=== PATIENT | female | born 1950 | race Caucasian/White ===

== ENCOUNTER 2016-07-31 10:16 | Outpatient (CLI) ==
[2012-09-14 10:21] VITALS: TEMP 96.6; BMI 25.4
[2016-07-31 10:30] LABS: BASOPHILS # (AUTO) 0.1 K/uL (0-0.2); BASOPHILS % (AUTO) 1.3 % (0.0-3.0); EOSINOPHILS # (AUTO) 0.1 K/ul (0.0-0.7); EOSINOPHILS % (AUTO) 2.6 % (0.0-7.0); HEMATOCRIT 34.8 % (37.0-47.0); HEMOGLOBIN 11.2 g/dl (12.0-16.0); IMMATURE GRANULOCYTE % (AUTO) 0.2 % (0.0-5.0); LYMPHOCYTES # (AUTO) 1.6 K/uL (0.60-3.4); MEAN CORPUSCULAR HEMOGLOBIN 26.2 pg (27.0-31.0); MEAN CORPUSCULAR HGB CONC 32.2 (31.8-35.4); MEAN CORPUSCULAR VOLUME 81.3 fl (81.0-99.0); MONOCYTES # (AUTO) 0.4 K/uL (0.4-2.0); MONOCYTES % (AUTO) 8.4 (0-10); NEUTROPHILS # (AUTO) 2.3 K/ul (2.0-6.9); NEUTROPHILS % (AUTO) 51.5; PLATELET COUNT 247 10^3/uL (140-440); RED BLOOD COUNT 4.28 10^6/ul (4.20-5.40); WHITE BLOOD COUNT 4.53 K/ul (4.6-10.2)
[2016-07-31 11:11] LABS: ALBUMIN 3.7 g/dL (3.4-5.0); ALBUMIN/GLOBULIN RATIO 1.09; ANION GAP 13.3; BILIRUBIN,TOTAL 0.34 mg/dL (0.00-1.20); BUN/CREATININE RATIO 12.74; CHOL/HDL RATIO 3.8 (4.5-5.5); CREATININE 1.02 mg/dL (0.60-1.30); POTASSIUM 4.3 mmol/L (3.5-5.10); TOTAL PROTEIN 7.1 g/dL (5.8-8.1)
== END 2016-07-31 10:17 | disposition home or self-care (01) ==
LOC: LAB 10:16
PROVIDERS: ATTEND Emergency Medicine
DX: E78.5 Hyperlipidemia, unspecified (principal); I10 Essential (primary) hypertension
CPT/HCPCS: 36415; 80053; 80061; 84443; 85025

== ENCOUNTER 2016-08-03 10:41 | Outpatient (CLI) ==
[2012-09-14 10:21] VITALS: TEMP 96.6; BMI 25.4
--- NOTE | 2016-08-03 11:17 | DI ---
EXAM: 3 views of the right HISTORY: right foot pain. COMPARISON: None FINDINGS: There is no cortical irregularity or displaced fracture. There is mild degenerative whitakre e and hallux valgus deformity at the first MTP joint. There is no lytic or blastic lesion. The arc h is maintained. Soft tissues are unremarkable. 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
== END 2016-08-03 10:42 | disposition home or self-care (01) ==
LOC: RAD 10:41
PROVIDERS: ATTEND Emergency Medicine
DX: M79.671 Pain in right foot (principal)

== ENCOUNTER 2016-09-05 10:21 | Outpatient (CLI) ==
[2012-09-14 10:21] VITALS: TEMP 96.6; BMI 25.4
[2016-09-05 10:50] LABS: BASOPHILS # (AUTO) 0.1 K/uL (0-0.2); BASOPHILS % (AUTO) 1.4 % (0.0-3.0); EOSINOPHILS # (AUTO) 0.1 K/ul (0.0-0.7); EOSINOPHILS % (AUTO) 2.2 % (0.0-7.0); HEMATOCRIT 34.8 % (37.0-47.0); HEMOGLOBIN 11.4 g/dl (12.0-16.0); IMMATURE GRANULOCYTE % (AUTO) 0.2 % (0.0-5.0); LYMPHOCYTES # (AUTO) 1.5 K/uL (0.60-3.4); LYMPHOCYTES % (AUTO) 31.2 (10.0-50.0); MEAN CORPUSCULAR HEMOGLOBIN 25.9 pg (27.0-31.0); MEAN CORPUSCULAR HGB CONC 32.8 (31.8-35.4); MEAN CORPUSCULAR VOLUME 79.1 fl (81.0-99.0); MONOCYTES # (AUTO) 0.5 K/uL (0.4-2.0); MONOCYTES % (AUTO) 9.1 (0-10); NEUTROPHILS # (AUTO) 2.8 K/ul (2.0-6.9); NEUTROPHILS % (AUTO) 55.9; PLATELET COUNT 249 10^3/uL (140-440); WHITE BLOOD COUNT 4.94 K/ul (4.6-10.2)
[2016-09-06 14:29] LABS: IMMATURE RETIC FRACTION 12.2; RETICULOCYTE % 0.91 %
[2016-09-06 14:44] LABS: FERRITIN 10.3 ng/mL (4.63-204.00)
[2016-09-06 16:03] LABS: FOLATE 30.4 ng/mL (3.1-20.5)
== END 2016-09-05 10:22 | disposition home or self-care (01) ==
LOC: LAB 10:21
PROVIDERS: ATTEND Emergency Medicine
DX: D64.9 Anemia, unspecified (principal)
CPT/HCPCS: 36415; 82607; 82728; 82746; 83540; 83550; 84466; 85025; 85045

== ENCOUNTER 2016-09-11 06:39 | Outpatient (CLI) ==
[2012-09-14 10:21] VITALS: TEMP 96.6; BMI 25.4
--- NOTE | 2016-09-12 11:19 | ECHO2D ---
Date of Exam: 09/11/16 Ordering Physician: MONIE RICO Reason for Echo: CHEST PAIN M-Mode Normal Adult Results LV Dimensions Normal Adult Results AoV Opening excursions >1.6 >1.6 LVEDD-base- 3.5-5.8 4.1 Ao root dimensions 2.0-3.7 2.7 LVESD-base- 3.1-4.6 L. Atrium dimensions 1.9-3.8 3.0 Post. Wall thickness 0.8-1.1 0.9 IV septum (thickness) 0.7-1.2 0.9 Post. Wall excursion 0.72-1.3 NORMAL Septal motion NORMAL Systolic motion R. Ventricular cavity 1.5-2.0 NORMAL LVEF 60% 58% Paradoxical septal wall motion NORMAL 2-D : MITRAL VALVE PROLAPSE NOTED ON LEFT PARASTERNAL LONG AXIS / APICAL FOUR CHAMBER VIEW, NORMAL LEFT VENTRICULAR CONTRACTILITY--NO EFFUSION, NO THROMBUS, ANA M LEFT VENTRICLE AND LEFT ATRIAL SIZE. M-MODE: MV: MITRAL VALVE PROLAPSE LATE SYSTOLIC AV: NORMAL TV: NORMAL PV: CHAMBER SIZE: NORMAL WALL MOTION: NORMAL PERICARDIUM: NORMAL INTERPRETATION: 1. LATE MITRAL VALVE PROLAPSE 2. NORMAL LEFT VENTRICULAR CONTRACTILITY 3. NORMAL LEFT VENTRICLE AND LEFT ATRIAL SIZE MTDD
== END 2016-09-11 06:40 | disposition home or self-care (01) ==
LOC: CAR 06:39
PROVIDERS: ATTEND Emergency Medicine
DX: R07.9 Chest pain, unspecified (principal)

== ENCOUNTER 2016-09-14 06:39 | Outpatient (CLI) | payer OTHER ==
[2012-09-14 10:21] VITALS: TEMP 96.6; BMI 25.4
--- NOTE | 2016-09-14 09:19 | STRESSECHO ---
Date of Test: 09/14/16 Reason for Exam: CHEST PAIN, SOB Ordering Physician: MONIE RICO Current Medications: SYNTHROID, ACYCLOVIR, CITALOPRAM Physical Findings: S1, S2, NO S3 Resting EKG: SINUS RHYTHM/NO ACUTE CHANGES Target Heart Rate: 130/154 STAGE MPH/GRADE HEART RATE BPM BLOOD PRESSURE mmhg RHYTHM S-T SEGMENT +/- UP DOWN SYMPTOMS,COMMENTS At Rest 75 110/70 SR X NONE 1 1.7/10% 142 178/74 SR X NONE 2 2.5/12% 3 3.4/14% 4 4.2/16% 5 5.0/18% Immediately after 154 178/80 SR X SHORT OF BREATH Durations of Exercise: 4:12 Maximum Heart Rate Reached: 154 Reason for Termination: SHORT OF BREATH 3 MIN POST EXERCISE: HR 92 BPM, BP 142/80 MMHG, SR, +/- 4 MIN POST EXERCISE: HR 90 BPM, SR, +/- INTERPRETATION: 100% OXYGEN SATURATION WITH EXERCISE ON ROOM AIR 1. TEST POSITIVE FOR ISCHEMIC ST-T WAVE CHANGES 2. NO CHEST PAIN OR DISCOMFORT 3. BLOOD PRESSURE RESPONSE: NORMAL AT REST/ MILD HYPERTENSION WITH EXERCISE 4. NO ARRHYTHMIAS MILDLY HYPOKINETIC INFERIOR WALL WITH EXERCISE/NORMAL LEFT VENTRICULAR CONTRACTILITY AT REST BABY ASA AND ZEBETA 5MG MTDD
--- NOTE | 2016-09-14 09:21 | ECHOSTRESS ---
Date of Exam: 09/14/16 Ordering Physician: MONIE RICO Reason for Echo: CHEST PAIN, SOB, STRESS TEST--POSITIVE FOR ISCHEMIA M-Mode Normal Adult Results LV Dimensions Normal Adult Results AoV Opening excursions >1.6 LVEDD-base- 3.5-5.8 Ao root dimensions 2.0-3.7 LVESD-base- 3.1-4.6 L. Atrium dimensions 1.9-3.8 Post. Wall thickness 0.8-1.1 IV septum (thickness) 0.7-1.2 Post. Wall excursion 0.72-1.3 Septal motion Systolic motion R. Ventricular cavity 1.5-2.0 LVEF 60% Paradoxical septal wall motion 2-D: MILD INFERIOR WALL HYPOKINESIA WITH EXERCISE/ANA M LEFT VENTRICLE AT REST M-MODE: MV: AV: TV: PV: CHAMBER SIZE: WALL MOTION: MILD INFERIOR WALL HYPOKINESIA WITH EXERCISE/ANA M LEFT VENTRICLE AT REST PERICARDIUM: INTERPRETATION: 1. MILD INFERIOR WALL HYPOKINESIA WITH EXERCISE/ANA M LEFT VENTRICLE AT REST MTDD
== END 2016-09-14 06:40 | disposition home or self-care (01) ==
LOC: CAR 06:39
PROVIDERS: ATTEND Emergency Medicine
DX: R07.9 Chest pain, unspecified (principal)

== ENCOUNTER 2016-10-05 10:42 | Outpatient (CLI) ==
[2012-09-14 10:21] VITALS: TEMP 96.6; BMI 25.4
--- NOTE | 2016-10-05 11:23 | DI ---
EXAM: Chest two views HISTORY: Shortness of breath COMPARISON: 05/15/2010 TECHNIQUE: Two views of the chest were performed FINDINGS: The lungs are clear. There is no pleural effusion or pneumothorax. The heart is normal in size. The mediastinal contour is normal. There are no acute abnormalities of the bones. Breast implants noted. IMPRESSION: No acute cardiopulmonary process.
== END 2016-10-05 10:43 | disposition home or self-care (01) ==
LOC: RAD 10:42
PROVIDERS: ATTEND Emergency Medicine
DX: R06.02 Shortness of breath (principal)

== ENCOUNTER 2016-10-09 12:54 | Outpatient (CLI) ==
[2012-09-14 10:21] VITALS: TEMP 96.6; BMI 25.4
== END 2016-10-09 12:55 | disposition home or self-care (01) ==
LOC: CAR 12:54
PROVIDERS: ATTEND Emergency Medicine
DX: R06.02 Shortness of breath (principal)

== ENCOUNTER 2016-10-16 08:45 | Outpatient (CLI) ==
[2012-09-14 10:21] VITALS: TEMP 96.6; BMI 25.4
--- NOTE | 2016-10-16 10:04 | CT ---
EXAM: CT of the chest without contrast History: Mitral valve prolapse. Comparison: Chest radiograph 10/05/2016 Technique: Multiplanar CT images through the thorax were obtained without the administration of IV contrast Findings: Bilateral breast implants. 9 mm left axillary lymph node and 8 mm right axillary lymph n ode. No pathologically enlarged mediastinal lymph nodes. Evaluation for hilar lymph nodes is limite d due to the lack of contrast administration but no bulky adenopathy is seen. Coronary calcificatio ns. Heart size is normal. Great vessels are unremarkable. No consolidation. No pleural fluid and no pneumothorax. No lung masses or lung nodules. Within the visualized upper abdomen, no acute findings. No acute osseous abnormalities. Impression: 1. No acute intrathoracic process. 2. Borderline enlarged nonspecific bilateral axillary lymph nodes.
== END 2016-10-16 08:46 | disposition home or self-care (01) ==
LOC: RAD 08:45
PROVIDERS: ATTEND Emergency Medicine
DX: I34.1 Nonrheumatic mitral (valve) prolapse (principal); R06.02 Shortness of breath

== ENCOUNTER 2017-05-23 12:39 | Outpatient (CLI) | payer OTHER ==
[2012-09-14 10:21] VITALS: TEMP 96.6; BMI 25.4
== END 2017-05-23 12:40 | disposition home or self-care (01) ==
LOC: LAB 12:39
PROVIDERS: ATTEND Nurse Practitioner Family
DX: R05 Cough (principal)
CPT/HCPCS: 87651; 87804

== ENCOUNTER 2017-05-28 11:56 | Outpatient (CLI) ==
[2012-09-14 10:21] VITALS: TEMP 96.6; BMI 25.4
--- NOTE | 2017-05-28 14:01 | DI ---
EXAM: CHEST FRONTAL AND LATERAL VIEWS HISTORY: Shortness of breath. COMPARISON: 10/05/2016 FINDINGS: Heart size and mediastinal contour remain within normal limits. Mild hyperinflation. No acute infiltrates are seen. No vascular congestion. There is no consolidation, visible pleural flui d or pneumothorax. Bones reveal no acute fracture. IMPRESSION: No acute cardiopulmonary process.
== END 2017-05-28 11:57 | disposition home or self-care (01) ==
LOC: RAD 11:56
PROVIDERS: ATTEND Emergency Medicine
DX: R06.02 Shortness of breath (principal)

== ENCOUNTER 2017-08-10 08:29 | Outpatient (CLI) | payer OTHER ==
[2012-09-14 10:21] VITALS: TEMP 96.6; BMI 25.4
== END 2017-08-10 08:30 | disposition home or self-care (01) ==
LOC: LAB 08:29
PROVIDERS: ATTEND Emergency Medicine
DX: I10 Essential (primary) hypertension (principal); D64.9 Anemia, unspecified; F33.1 Major depressive disorder, recurrent, moderate
CPT/HCPCS: 36415; 80053; 80061; 82607; 82728; 82746; 83540; 83550; 84443; 84466; 85025; 85045

== ENCOUNTER 2017-11-16 12:49 | Outpatient (CLI) ==
[2012-09-14 10:21] VITALS: TEMP 96.6; BMI 25.4
== END 2017-11-16 12:50 | disposition home or self-care (01) ==
LOC: LAB 12:49
PROVIDERS: ATTEND Emergency Medicine
DX: E03.9 Hypothyroidism, unspecified (principal); I10 Essential (primary) hypertension
CPT/HCPCS: 36415; 80053; 80061; 84443; 85025

== ENCOUNTER 2018-05-06 11:56 | Outpatient (CLI) ==
[2012-09-14 10:21] VITALS: TEMP 96.6; BMI 25.4
== END 2018-05-06 11:57 | disposition home or self-care (01) ==
LOC: RHC-LAB 11:56 → FCC-LAB 11:57
PROVIDERS: ATTEND Family Medicine
DX: R07.9 Chest pain, unspecified (principal); R10.13 Epigastric pain; E03.9 Hypothyroidism, unspecified; I10 Essential (primary) hypertension; I34.1 Nonrheumatic mitral (valve) prolapse; R06.02 Shortness of breath; K27.9 Peptic ulcer, site unspecified, unspecified as acute or chronic, without hemorrhage or perforation
CPT/HCPCS: 36415; 80053; 80061; 84443; 85025; 87338

== ENCOUNTER 2018-05-23 06:24 | Outpatient (CLI) ==
[2012-09-14 10:21] VITALS: TEMP 96.6; BMI 25.4
--- NOTE | 2018-05-27 08:47 | STRESSECHO ---
Date of Test: 05/23/18 Ordering Physician: DR. 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, EPIGASTRIC PAIN Smoking History: NONE Height: 61 " Weight: 140 LBS Current Medications: SYNTHROID, ZYRTEC, ACYCLOVIR, CELEXA, PROTONIX, CARAFATE Resting EKG: SINUS RHYTHM/ NO ACUTE CHANGES Target Heart Rate: 130/153 S-T SEGMENT STAGE MPH/GRADE HEART RATE BPM BLOOD PRESSURE MMHG RHYTHM +/- ELEVATION DEPRESSION SYMPTOMS AT REST 65 BPM 118/78 MMHG SR X NONE 1 1.7/10% 140 BPM 130/80 MMHG SR X NONE 2 2.5/12% 3 3.4/14% 4 4.2/16% 5 5.0/18% Immediately After 155 BPM SR X NONE Minutes Post Exercise 4:00 85 BPM 124/70 MMHG SR X NONE Minutes Post Exercise DURATION OF EXERCISE: 4:00 MAXIMUM HEART RATE REACHED: 155 BPM REASON FOR TERMINATION: SHORT OF AIR 98% OXYGEN SATURATION ON ROOM AIR METS: 7.0 INTERPRETATION: 1. NO EVIDENCE OF ISCHEMIA BY ST-T WAVE 2. NO CHEST PAIN OR CHEST DISCOMFORT 3. BLOOD PRESSURE RESPONSE: NORMAL AT REST AND WITH EXERCISE 4. NO ARRHYTHMIAS NORMAL LEFT VENTRICULAR CONTRACTILITY--RESTING AND POST EXERCISE MTDD
--- NOTE | 2018-05-27 08:52 | ECHOSTRESS ---
Date of Exam: 05/23/18 Ordering Physician: DR. JATINDER SHEPARD Reason for Echo: CHEST PAIN, EPIGASTRIC PAIN, STRESS TEST--NO ISCHEMIA M-Mode Normal Adult Results LV Dimensions Normal Adult Results AoV Opening excursions >1.6 LVEDD-base- 3.5-5.8 Ao root dimensions 2.0-3.7 LVESD-base- 3.1-4.6 L. Atrium dimensions 1.9-3.8 Post. Wall thickness 0.8-1.1 IV septum (thickness) 0.7-1.2 Post. Wall excursion 0.72-1.3 Septal motion Systolic motion R. Ventricular cavity 1.5-2.0 LVEF 60% Paradoxical septal wall motion 2-D: NORMAL LEFT VENTRICULAR CONTRACTILITY--RESTING AND POST EXERCISE M-MODE: MV: AV: TV: PV: CHAMBER SIZE: WALL MOTION: NORMAL LEFT VENTRICULAR CONTRACTILITY--RESTING AND POST EXERCISE PERICARDIUM: INTERPRETATION: 1. NORMAL LEFT VENTRICULAR CONTRACTILITY--RESTING AND POST EXERCISE MTDD
--- NOTE | 2018-05-27 08:54 | ECHO2D ---
Date of Exam: 05/23/18 Ordering Physician: DR. JATINDER SHEPARD Room #: OP Reason for Echo: CHEST PAIN, EPIGASTRIC PAIN M-Mode Normal Adult Results LV Dimensions Normal Adult Results AoV Opening excursions >1.6 >1.6 LVEDD-base- 3.5-5.8 3.2 Ao root dimensions 2.0-3.7 2.9 LVESD-base- 3.1-4.6 L. Atrium dimensions 1.9-3.8 3.6 Post. Wall thickness 0.8-1.1 1.0 IV septum (thickness) 0.7-1.2 0.9 Post. Wall excursion 0.72-1.3 NORMAL Septal motion NORMAL Systolic motion R. Ventricular cavity 1.5-2.0 NORMAL LVEF 60% 60% Paradoxical septal wall motion NORMAL 2-D : 2-D M Mode Echocardiogram was performed using apical four chamber and left parasternal long and short axis views. Mitral, tricuspid and aortic valves appear to be normal. Contractility of the left ventricle seems to be normal, so is the cavity size. Left atrial cavity size and aortic root appear to be normal. There is no pericardial effusion. There is no thrombus noted in the left ventricular or left aortic cavity. No mitral valve prolapse noted. M-MODE: MV: NORMAL AV: NORMAL TV: NORMAL PV: CHAMBER SIZE: NORMAL WALL MOTION: NORMAL PERICARDIUM: NORMAL INTERPRETATION: 1. NORMAL 2 "D" "M" MODE ECHO MTDD
== END 2018-05-23 06:25 | disposition home or self-care (01) ==
LOC: CAR 06:24
PROVIDERS: ATTEND Family Medicine
DX: R07.9 Chest pain, unspecified (principal); R10.13 Epigastric pain

== ENCOUNTER 2018-06-28 11:56 | Emergency (ER) ==
[2018-06-28 12:03] VITALS: BP 132/75; TEMP 99.1; BMI 25.1
--- NOTE | 2018-06-28 13:00 | ED.PDOC ---
General ED Provider: Dr. CLYDE MARTIN Chief Complaint: Constipation Stated Complaint: stomach ca had foirst chemo dose last week.Independently copncerned about bowel slowness and retention.Gives herself enema but would like to know if she has her bowels filled. Time Seen by Physician: 12:00 Mode of Arrival: Walk-In Information Source: Patient Exam Limitations: No limitations Primary Care Provider: JATINDER SHEPARD Nursing and Triage Documentation Reviewed and Agree: Yes Does patient meet sepsis criteria?: No System Inflammatory Response Syndrome: Not Applicable Sepsis Protocol: For patient's 13 years and over: Temp is 96.8 and below OR 101 and greater Pulse >90 BPM Resp >20/minute Acutely Altered Mental Status Are patient's symptoms suggestive of a new infection, such as: -Pneumonia -Skin, Soft Tissue -Endocarditis -UTI -Bone, Joint Infection -Implantable Device -Acute Abdominal Infection -Wound Infection -Meningitis -Blood Stream Catheter Infection -Unknown GI Complaint Exam - Abdominal Pain Complaint/Exam Duration: few days Symptoms Are: Still present Timing: Intermittent Initial Severity: Mild Current Severity: Mild Location of Pain: Diffuse Radiates To: Reports: Back Character: Reports: Cramping Aggravating: Reports: Eating Alleviating: Reports: Rest, Position, Spontaneous resolution Associated Signs and Symptoms: Reports: Decreased activity Review of Systems - Review Of Systems Constitutional: Reports: Weakness Eyes: Reports: No symptoms Ears, Nose, Mouth, Throat: Reports: No symptoms Respiratory: Reports: No symptoms Cardiac: Reports: No symptoms GI: Reports: No symptoms : Reports: No symptoms Musculoskeletal: Reports: No symptoms Neurological: Reports: No symptoms Endocrine: Reports: No symptoms Hematologic/Lymphatic: Reports: No symptoms All Other Systems: Reviewed and Negative Past Medical History - Past Medical History Previously Healthy: Yes Endocrine: Reports: None Cardiovascular: Reports: None Respiratory: Reports: None Hematological: Reports: None Gastrointestinal: Reports: Other Genitourinary: Reports: None Neuro/Psych: Reports: None Musculoskeletal: Reports: None Cancer: Reports: None Last Menstrual Period: n/a - Surgical History General Surgical History: Reports: Other - Family History Family History: Reports: Hypertension - Social History Smoking Status: Never smoker Hx Substance Use: No Alcohol Screening: None Lives: Alone - Immunizations Tetanus Shot up to Date: Yes Physical Exam - Physical Exam Appearance: Well-appearing Ill-appearing: None Pain Distress: Mild Eyes: SUBHASH ENT: Ears normal Neck: Supple Respiratory: Airway patent GI/: Nontender Musculoskeletal: Normal strength Skin: Warm Neurological: Sensation intact Critical Care Note - Critical Care Note Total Time (mins): 0 Course - Course Orders, Labs, Meds: Orders Category Date Time Status IV [ED IV/MEDIPORT/POWERPORT] .ONCE EMERGENCY 06/28/18 13:09 Active 0.9 % Sodium Chloride [Saline Flush] MEDS 06/28/18 13:09 Active 1 syr IVF PRN PRN Sodium Chloride 0.9% [Sodium Chloride] 500 ml MEDS 06/28/18 13:[address] ABDOMEN/PELVIS WO CONTRAST Stat RADS 06/28/18 13:04 Completed Medications Generic Name Dose Route Start Last Admin Trade Name Freq PRN Reason Stop Dose Admin Sodium Chloride 1 syr 06/28/18 13:09 Saline Flush IVF PRN PRN To flush IV Discontinued Medications Generic Name Dose Route Start Last Admin Trade Name Freq PRN Reason Stop Dose Admin Sodium Chloride 500 mls @ 500 mls/hr 06/28/18 13:10 06/28/18 13:27 Sodium Chloride IV 06/28/18 14:09 500 mls/hr BOLUS STA Administration Vital Signs: Temp Pulse Resp BP Pulse Ox 06/28/18 11:58 99.1 F 68 20 132/75 97 Departure - Departure Time of Disposition: 14:30 Disposition: HOME SELF-CARE Discharge Problem: Constipation Instructions: Fleet Enema (ED) Condition: Good Pt referred to PMD for follow-up: Yes IPMP verified?: Yes Allergies/Adverse Reactions: Allergies ampicillin Adverse Reaction (Verified 06/28/18 12:03) clarithromycin [From Biaxin] Adverse Reaction (Verified 06/28/18 12:03) meperidine HCl [From Demerol] Adverse Reaction (Verified 06/28/18 12:03) minocycline HCl [From Minocin] Adverse Reaction (Verified 06/28/18 12:03) Penicillins Adverse Reaction (Verified 06/28/18 12:03) Skin Cleanser Combination No.4 [From Minocin] Adverse Reaction (Verified 12:03) Home Medications: Ambulatory Orders Cetirizine HCl [Zyrtec] 10 mg PO DAILY 09/14/12 Levothyroxine Sodium [Synthroid] 88 mcg PO DAILY 09/14/12 Citalopram Hydrobromide [Celexa] 40 mg PO DAILY 06/16/13 Fluticasone Propionate [Flonase Allergy Relief] 9.9 ml NS d 10/05/16 Acyclovir 800 mg PO DAILY #30 tab-cap 05/06/18 Disposition Discussed With: Patient
[2018-06-28] MEDS ORDERED: SODIUM CHLORIDE 500 ML IV STA (13:10)
--- NOTE | 2018-06-28 14:18 | CT ---
Exam: CT abdomen pelvis without intravenous contrast. Comparison: Ultrasound performed 06/08/2014. Reason for exam: Stomach cancer. FINDINGS: Image interpretation is limited by the lack of intravenous contrast administration. Nonspecific inflammatory changes are seen in the mid mesenteric fat in the region of the pancreas and duodenum. There is thickening of the distal gastric wall. No hydronephrosis, hydroureter or nephrolithiasis in either kidney. The liver and spleen and adrenal glands appear grossly unremarkable within limitations of a noncontra sted study. No obvious pancreatic ductal dilatation is seen. No focal small bowel dilatation or transition point. Dense stool seen throughout the colon. No suspicious appearing osteoblastic or osteolytic lesions. The bladder appears unremarkable. Impression: 1. Thickening of the distal gastric wall. Imaging findings can be seen with gastritis neoplasia and non distension. Recommend direct visualization. 2. Nonspecific inflammatory changes are seen in the mid mesenteric abdomen with prominent appearing lymph nodes. Findings can be seen with mesenteritis, inflammation, infection, and neoplasia. Follow -up imaging is recommended. 3. Dense stool is seen throughout the colon consistent with constipation.
== END 2018-06-28 15:45 | disposition home or self-care (01) ==
LOC: ED 11:56
DX: K59.00 Constipation, unspecified (principal); C16.9 Malignant neoplasm of stomach, unspecified
CPT/HCPCS: 99283

== ENCOUNTER 2018-07-15 12:02 | Emergency (ER) ==
[2018-07-15 12:14] VITALS: BP 126/79; TEMP 98; BMI 24.3
[2018-07-15] MEDS ORDERED: SODIUM CHLORIDE 1,000 ML IV STA (12:57)
--- NOTE | 2018-07-15 14:53 | CT ---
EXAM: CT of the abdomen pelvis without contrast History: Abdominal pain, stage IV stomach cancer. Vomiting Comparison: CT abdomen pelvis 06/28/2018 Technique: Multiplanar CT images through the abdomen pelvis were obtained without the administration of IV contrast Findings: Limited evaluation without IV contrast. Lung bases are clear. No acute osseous abnormali ties. No change in the gastric wall thickening and mildly enlarged upper abdominal lymph nodes. The stomach is mild to moderately distended proximal to the gastric wall thickening. No gallstones iden tified by CT. No focal liver or splenic lesions identified within limitations of a noncontrast study . No wilfrido peripancreatic inflammation. Adrenal glands are unremarkable. No renal stones and no hy dronephrosis. No bowel obstruction. No free air and no ascites. No bladder wall thickening. No pe rirectal inflammation. Uterus is not seen in likely has been surgically removed. Colonic diverticul osis. Impression: 1. No change in the malignant wall thickening of the stomach with enlarged upper abdominal lymph nod es. 2. The stomach is mild to moderately distended proximal to the gastric wall thickening. 3. No evidence for bowel obstruction. 4. Colonic diverticulosis. 5. Limits evaluation without IV contrast
--- NOTE | 2018-07-15 15:39 | ED.PDOC ---
General ED Provider: Dr. STEVE BARCLAY Chief Complaint: Nausea/Vomiting Stated Complaint: nausea, vomiting Time Seen by Physician: 12:20 Mode of Arrival: Walk-In Information Source: Patient Exam Limitations: No limitations Primary Care Provider: JATINDER SHEPARD Nursing and Triage Documentation Reviewed and Agree: Yes Does patient meet sepsis criteria?: No System Inflammatory Response Syndrome: Not Applicable Sepsis Protocol: For patient's 13 years and over: Temp is 96.8 and below OR 101 and greater Pulse >90 BPM Resp >20/minute Acutely Altered Mental Status Are patient's symptoms suggestive of a new infection, such as: -Pneumonia -Skin, Soft Tissue -Endocarditis -UTI -Bone, Joint Infection -Implantable Device -Acute Abdominal Infection -Wound Infection -Meningitis -Blood Stream Catheter Infection -Unknown GI Complaint Exam - Abdominal Pain Complaint/Exam Onset: Gradual Symptoms Are: Resolved Timing: Intermittent Initial Severity: Mild Current Severity: None Location of Pain: Diffuse Character: Reports: Aching Aggravating: Reports: None Alleviating: Reports: None Associated Signs and Symptoms: Reports: Vomiting. Denies: Diaphoresis, Fever, Cough, Chest pain, Dizziness, Back pain, Constipation, Blood in stool, Dysuria, Urinary frequency, Decreased urine output, Decreased appetite, Vaginal bleeding , Vaginal discharge, Nausea, Diarrhea, Sore throat, Decreased activity AAA Risk Factors: Reports: None Cardiac Risk Factors: Reports: None Ectopic Risk Factors: Reports: None Ovarian Torsion Risk Factors: Reports: None Surgical Obstruction Risk Factors: Reports: None Related Surgical History: Reports: None Patient Rh Status: Unknown Abdominal Findings: Present: None Review of Systems - Review Of Systems Constitutional: Reports: No symptoms Eyes: Reports: No symptoms Ears, Nose, Mouth, Throat: Reports: No symptoms Respiratory: Reports: No symptoms Cardiac: Reports: No symptoms GI: Reports: Abdominal pain, Nausea : Reports: No symptoms Musculoskeletal: Reports: No symptoms Skin: Reports: No symptoms Neurological: Reports: No symptoms Endocrine: Reports: No symptoms Hematologic/Lymphatic: Reports: No symptoms All Other Systems: Reviewed and Negative Past Medical History - Past Medical History Previously Healthy: Yes Endocrine: Reports: None Cardiovascular: Reports: None Respiratory: Reports: None Hematological: Reports: None Gastrointestinal: Reports: Other Genitourinary: Reports: None Neuro/Psych: Reports: None Musculoskeletal: Reports: None Cancer: Reports: None Last Menstrual Period: NA - Surgical History General Surgical History: Reports: Other - Family History Family History: Reports: Hypertension - Social History Smoking Status: Never smoker Hx Substance Use: No Alcohol Screening: None Physical Exam - Physical Exam Appearance: Well-appearing, No pain distress, Well-nourished Eyes: SUBHASH, EOMI, Conjunctiva clear ENT: Ears normal, Nose normal, Oropharynx normal Respiratory: Airway patent, Breath sounds clear, Breath sounds equal, Respirations nonlabored Cardiovascular: RRR, Pulses normal, No rub, No murmur GI/: Soft, Nontender, No masses, Bowel sounds normal, No Organomegaly Musculoskeletal: Normal strength, ROM intact, No edema, No calf tenderness Skin: Warm, Dry, Normal color Neurological: Sensation intact, Motor intact, Reflexes intact, Cranial nerves intact, Alert, Oriented Psychiatric: Affect appropriate, Mood appropriate Interpretation - Radiology Interpretation Radiology Interpretation By: Radiologist Radiology Results: No acute changes Critical Care Note - Critical Care Note Total Time (mins): 0 Course - Course Hematology/Chemistry: 07/15/18 13:00 07/15/18 13:00 Orders, Labs, Meds: Lab Review 07/15/18 07/15/18 13:00 13:00 WBC 2.90 L RBC 3.76 L Hgb 10.2 L Hct 30.3 L MCV 80.6 L MCH 27.1 MCHC 33.7 RDW Coeff of Maria [place] Carm[place] 15.7 H Plt Count 167 Immature Gran % (Auto) 0.3 Neut % (Auto) 45.5 Lymph % (Auto) 40.7 [place] % (Auto) 8.3 Eos % (Auto) 4.5 Baso % (Auto) 0.7 Immature Gran # (Auto) 0.0 Neut # (Auto) 1.3 L Lymph # (Auto) 1.2 [place] # (Auto) 0.2 L Eos # (Auto) 0.1 Baso # (Auto) 0.0 Sodium 134.0 L Potassium 3.40 L Chloride 100.0 Carbon Dioxide 25.0 Anion Gap 12.40 BUN 12.0 Creatinine 0.60 Estimated GFR (MDRD) 99.00 BUN/Creatinine Ratio 20.00 Glucose 83.0 Calcium 8.20 L Total Bilirubin 0.40 AST 26.0 ALT 14.0 Alkaline Phosphatase 71.0 Total Protein 6.70 Albumin 3.90 Globulin 2.80 Albumin/Globulin Ratio 1.39 Orders Category Date Time Status CBC W/ AUTO DIFF Stat LAB 07/15/18 13:00 Completed COMPREHENSIVE METABOLIC PANEL Stat LAB 07/15/18 13:00 Completed Sodium Chloride 0.9% [Sodium Chloride] 1,000 ml MEDS 07/15/18 12:[address] ABDOMEN/PELVIS WO CONTRAST Stat RADS 07/15/18 13:28 Completed Medications Generic Name Dose Route Start Last Admin Trade Name Myrtle PRN Reason Stop Dose Admin Sodium Chloride 1,000 mls @ 250 mls/hr 07/15/18 12:57 07/15/18 13:11 Sodium Chloride IV 07/15/18 16:56 250 mls/hr BOLUS STA Administration Vital Signs: Temp Pulse Resp BP Pulse Ox 07/15/18 12:10 98.0 F 64 16 126/79 100 Departure - Departure Time of Disposition: 15:39 Disposition: HOME SELF-CARE Discharge Problem: Nausea, Vomiting Vomiting Qualifiers: Vomiting type: unspecified Abdominal pain Qualifiers: Abdominal location: unspecified location Qualified Code(s): R10.9 - Unspecified abdominal pain Instructions: Abdominal Pain (ED) Condition: Good Pt referred to PMD for follow-up: Yes IPMP verified?: No Additional Instructions: Please call your Family Physician as soon as possible to schedule a follow-up appointment. Allergies/Adverse Reactions: Allergies ampicillin Adverse Reaction (Verified 06/28/18 12:03) clarithromycin [From Biaxin] Adverse Reaction (Verified 06/28/18 12:03) meperidine HCl [From Demerol] Adverse Reaction (Verified 06/28/18 12:03) minocycline HCl [From Minocin] Adverse Reaction (Verified 06/28/18 12:03) Penicillins Adverse Reaction (Verified 06/28/18 12:03) Skin Cleanser Combination No.4 [From Minocin] Adverse Reaction (Verified 12:03) Home Medications: Ambulatory Orders Cetirizine HCl [Zyrtec] 10 mg PO DAILY 09/14/12 Fluticasone Propionate [Flonase Allergy Relief] 9.9 ml NS d 10/05/16 Acyclovir 800 mg PO DAILY #30 tab-cap 05/06/18 Ondansetron HCl [Zofran] 8 mg PO Q8H PRN 07/15/18 Ondansetron [Zofran Odt] 4 mg PO Q8H 07/15/18 Oxycodone HCl [Oxycodone] 5 mg PO Q8H PRN 07/15/18 Prochlorperazine Maleate [Compazine] 10 mg PO TID PRN 07/15/18
== END 2018-07-15 16:14 | disposition home or self-care (01) ==
LOC: ED 12:02
DX: R11.2 Nausea with vomiting, unspecified (principal); R10.9 Unspecified abdominal pain
CPT/HCPCS: 36415; 80053; 85025; 96360; 96361; 99283

== ENCOUNTER 2018-07-31 12:58 | Outpatient (POV) | payer OTHER ==
[2012-09-14 10:21] VITALS: TEMP 96.6
== END 2018-07-31 17:00 ==
LOC: OUTPT 12:58
PROVIDERS: ATTEND Otolaryngology
DX: H69.80 Other specified disorders of Eustachian tube, unspecified ear (principal)
CPT/HCPCS: 92557; 92567

== ENCOUNTER 2018-08-09 07:50 | Outpatient (CLI) | payer OTHER ==
[2018-08-09 08:05] VITALS: BP 117/73; TEMP 98.2
[2018-08-09] MEDS ORDERED: SALINE FLUSH (PORT ACCESS TRAY USE ONLY) IVF ONE (08:13)
[2018-08-09] MEDS ORDERED: HEPARIN 500 UNIT/5 ML (PORT ACCESS TRAY ONLY) IVF ONE (08:13)
[2018-08-09] MEDS ORDERED: SODIUM CHLORIDE 1,000 ML IV ONE (08:30)
== END 2018-08-09 07:51 | disposition home or self-care (01) ==
LOC: OPMED 07:50
PROVIDERS: ATTEND Internal Medicine Hematology
DX: C16.3 Malignant neoplasm of pyloric antrum (principal); E86.0 Dehydration
CPT/HCPCS: 96360; 96361

== ENCOUNTER 2018-09-13 09:02 | Outpatient (CLI) | payer OTHER ==
[2018-09-13 09:28] VITALS: BP 108/75; TEMP 97.8
[2018-09-13] MEDS ORDERED: SODIUM CHLORIDE 1,000 ML IV PRN (09:29)
[2018-09-13] MEDS ORDERED: SALINE FLUSH (PORT ACCESS TRAY USE ONLY) IVF ONE (11:51)
[2018-09-13] MEDS ORDERED: HEPARIN 500 UNIT/5 ML (PORT ACCESS TRAY ONLY) IVF ONE (11:52)
== END 2018-09-13 09:03 | disposition home or self-care (01) ==
LOC: OPMED 09:02
PROVIDERS: ATTEND Internal Medicine Hematology
DX: C16.3 Malignant neoplasm of pyloric antrum (principal); E86.0 Dehydration
CPT/HCPCS: 96360; 96361

== ENCOUNTER 2018-09-26 10:03 | Outpatient (CLI) ==
[2018-09-26 10:24] VITALS: BP 104/70; TEMP 97.8
[2018-09-26] MEDS ORDERED: SODIUM CHLORIDE 500 ML IV STA (10:24)
[2018-09-26] MEDS ORDERED: SALINE FLUSH (PORT ACCESS TRAY USE ONLY) IVF ONE (10:25)
[2018-09-26] MEDS ORDERED: SODIUM CHLORIDE 1,000 ML IV SCH ×2 (10:30)
[2018-09-26] MEDS ORDERED: SODIUM CHLORIDE 1,000 ML IV ONE (11:38)
[2018-09-26] MEDS ORDERED: HEPARIN 500 UNIT/5 ML (PORT ACCESS TRAY ONLY) IVF ONE (12:42)
== END 2018-09-26 10:04 | disposition home or self-care (01) ==
LOC: OPMED 10:03
PROVIDERS: ATTEND Internal Medicine Hematology
DX: C16.3 Malignant neoplasm of pyloric antrum (principal); E86.0 Dehydration
CPT/HCPCS: 96360; 96366